=== PATIENT | male | born 1965 ===

== ENCOUNTER 2017-02-05 01:03 | Emergency (ER) | payer OTHER ==
[2017-02-05 02:17] LABS: % IMMATURE GRANULYOCYTES 0.5 % (0.0-1.1); ABSOLUTE IMMATURE GRANULOCYTES 0.04 10^3/uL (0.00-0.10); ADD DIFF? NO; ADD MORPH? NO; ADD SCAN? NO; ATYPICAL LYMPHOCYTE FLAG 0 (0-99); FRAGMENT RBC FLAG 0 (0-99); HEMATOCRIT 41.7 % (40.0-51.0); HEMOGLOBIN 13.8 g/dL (13.7-17.5); LEFT SHIFT FLG 0 (0-99); LIPEMIA HEMOLYSIS FLAG 80 (0-99); MEAN CELL HEMOGLOBIN 30.8 pg (27.9-34.1); MEAN CELL HEMOGLOBIN CONCENTR. 33.1 g/dL (32.4-36.7); MEAN CELL VOLUME 93.1 fL (81.5-99.8); MEAN PLATELET VOLUME 10.8 fL (8.7-11.7); PLATELET CLUMPS FLAG 0 (0-99); PLATELET COUNT 249 10^3/uL (150-400); RED BLOOD CELL COUNT 4.48 10^6/uL (4.40-6.38); RED CELL DISTRIBUTION WIDTH 14.4 % (11.5-15.2)
[2017-02-05 02:27] LABS: ALANINE AMINOTRANSFERASE 71 IU/L (21-72); ALKALINE PHOSPHATASE 82 IU/L (38-126); ANION GAP 14 mEq/L (8-16); ASPARTATE AMINOTRANSFERASE 69 IU/L (17-59); BILIRUBIN,TOTAL 0.7 mg/dL (0.1-1.4); CARBON DIOXIDE 22 mEq/l (22-31); CHLORIDE 109 mEq/L (97-110); CREATININE 0.9 mg/dL (0.7-1.3); ETHANOL SERUM 101 mg/dL (0-10); GLOMERULAR FILTRATION RATE > 60; GLUCOSE 92 mg/dL (70-100); POTASSIUM 3.9 mEq/L (3.5-5.2); SODIUM 145 mEq/L (134-144); TOTAL PROTEIN 7.2 g/dL (6.3-8.2)
--- NOTE | 2017-02-05 03:54 | EDPHY ---
H & P Stated Complaint: M1, SI, plan to hang self Source: Patient, Family - Personal History Current Tetanus/Diphtheria Vaccine: Yes Current Tetanus Diphtheria and Acellular Pertussis (TDAP): Yes - Medical/Surgical History Hx Asthma: No Hx Chronic Respiratory Disease: No Hx Diabetes: No Hx Cardiac Disease: No Hx Renal Disease: No Hx Cirrhosis: No Hx Alcoholism: No Hx HIV/AIDS: No Hx Splenectomy or Spleen Trauma: No Other PMH: depression, PTSD - Social History Smoking Status: Never smoked Time Seen by Provider: 02/05/17 01:33 HPI/ROS: HPI The patient presents with suicidal ideation with plan to hang himself. He is brought in by police after being placed on an M1 hold. He sent his a text message saying he was going to hang himself. She then discovered a cord in the basement which she suspected he would use for this. She did not feel comfortable leaving him at home so that she could go to work, thus she called 911. The patient has had similar suicidal ideation in the past. He was last hospitalized in August of 2016 for SI is at the OR. He is followed by an outpatient psychiatrist and a therapist. He has been drinking alcohol tonight.. REVIEW OF SYSTEMS Constitutional: No fever, no chills. Eyes: No discharge. ENT: No sore throat. Cardiovascular: No chest pain, no palpitations. Respiratory: No cough, no shortness of breath. Gastrointestinal: No abdominal pain, no vomiting. Genitourinary: No hematuria. Musculoskeletal: No back pain. Skin: No rashes. Neurological: No headache. PMHx: PTSD, depression, on disability Soc Hx: [place] war , alcohol use PHYSICAL General Appearance: Alert, no distress Eyes: Pupils equal and round no pallor or injection ENT, Mouth: Mucous membranes moist Respiratory: There are no retractions, lungs are clear to auscultation Cardiovascular: Regular rate and rhythm Gastrointestinal: Abdomen is soft and non-tender, no masses, bowel sounds normal Neurological: A&O, moves all extremities Skin: Warm and dry, no rashes Musculoskeletal: Neck is supple non tender Extremities: symmetrical, full range of motion Psychiatric: Patient is oriented X 3, there is no agitation (Riguzzi,Mary Grace) Constitutional: Initial Vital Signs Temperature (C) 36.5 C 02/05/17 01:07 Heart Rate 103 H 02/05/17 01:07 Respiratory Rate 16 02/05/17 01:07 Blood Pressure 110/82 H 02/05/17 01:07 O2 Sat (%) 88 L 02/05/17 01:07 O2 Delivery Mode Room Air Allergies/Adverse Reactions: oxycodone [From Percocet] Allergy (Verified 02/05/17 01:13) Hives Penicillins Allergy (Verified 02/05/17 01:13) Hives Home Medications: Medication Instructions Recorded Amitriptyline HCl [Elavil 50 mg 25 mg PO HS 02/05/17 (*)] Citalopram [CeleXA] 20 mg PO DAILY 02/05/17 Gabapentin [Neurontin 300 MG (*)] 900 mg PO TID 02/05/17 Hydrocodone/Acetaminophen [[place] 1 tab PO BID 02/05/17 5/325 (*)] Morphine Er 15mg 15 mg PO BID 02/05/17 busPIRone [Buspar (*)] 5 mg PO DAILY 02/05/17 Medical Decision Making ED Course/Re-evaluation: In the emergency room, labs were checked which did reveal due to urine toxicology positive for opiates, the patient is on these long-term for chronic back pain. Alcohol level was also elevated. The patient was seen by the mental health worker Adalgisa. He became very upset when he heard that he would likely require hospitalization. He feels he would not benefit from his last hospitalization in August. He felt quite uncomfortable being in a locked nieto and this made his PTSD much worse. He was given a dose of Ativan to help him sleep. The mental health team plans on re- evaluating him in the morning and [facility]. At 7:00 a.m. he will be signed out to the oncoming provider Dr. Patel. ( Mary Grace Mckeon) 12:30 p.m. Patient has been accepted by [facility]. We will complete transfer paperwork. (Jm Patel) Differential Diagnosis: This is a 51-year-old male with history of PTSD and depression, prior suicide ideation who presents from home on an M1 hold for suicidal ideation after sending a text message to his stating that he was going to hang himself. She found a cord in the basement which she thought he may use. He has been drinking alcohol. Differential diagnosis includes worsening depression with suicidal ideation, alcohol abuse, polysubstance abuse. (Mary Grace Mckeon) - Data Points Laboratory Results: Laboratory Results 02/05/17 01:54 02/05/17 01:54 02/05/17 02/05/17 02/05/17 02:20 01:54 01:54 WBC 8.50 10^3/uL 10^3/uL (3.80-9.50) RBC 4.48 10^6/uL 10^6/uL (4.40-6.38) Hgb 13.8 g/dL g/dL (13.7-17.5) Hct 41.7 % % (40.0-51.0) MCV 93.1 fL fL (81.5-99.8) MCH 30.8 pg pg (27.9-34.1) MCHC 33.1 g/dL g/dL (32.4-36.7) RDW 14.4 % % (11.5-15.2) Plt Count 249 10^3/uL 10^3/uL (150-400) MPV 10.8 fL fL (8.7-11.7) Neut % (Auto) 57.2 % % (39.3-74.2) Lymph % (Auto) 32.2 % % (15.0-45.0) [place] % (Auto) 7.3 % % (4.5-13.0) Eos % (Auto) 2.2 % % (0.6-7.6) Baso % (Auto) 0.6 % % (0.3-1.7) Nucleat RBC Rel Count 0.0 % % (0.0-0.2) Absolute Neuts (auto) 4.86 10^3/uL 10^3/uL (1.70-6.50) Absolute Lymphs (auto) 2.74 10^3/uL 10^3/uL (1.00-3.00) Absolute Monos (auto) 0.62 10^3/uL 10^3/uL (0.30-0.80) Absolute Eos (auto) 0.19 10^3/uL 10^3/uL (0.03-0.40) Absolute Basos (auto) 0.05 10^3/uL 10^3/uL (0.02-0.10) Absolute Nucleated RBC 0.00 10^3/uL 10^3/uL (0-0.01) Immature Gran % 0.5 % % (0.0-1.1) Immature Gran # 0.04 10^3/uL 10^3/uL (0.00-0.10) Sodium 145 mEq/L H mEq/L (134-144) Potassium 3.9 mEq/L mEq/L (3.5-5.2) Chloride 109 mEq/L mEq/L (97-110) Carbon Dioxide 22 mEq/l mEq/l (22-31) Anion Gap 14 mEq/L mEq/L (8-16) BUN 13 mg/dL mg/dL (7-23) Creatinine 0.9 mg/dL mg/dL (0.7-1.3) Estimated GFR > 60 Glucose 92 mg/dL mg/dL (70-100) Calcium 9.0 mg/dL mg/dL (8.5-10.4) Total Bilirubin 0.7 mg/dL mg/dL (0.1-1.4) AST 69 IU/L H IU/L (17-59) ALT 71 IU/L IU/L (21-72) Alkaline Phosphatase 82 IU/L IU/L (38-126) Total Protein 7.2 g/dL g/dL (6.3-8.2) Albumin 4.0 g/dL g/dL (3.5-5.0) Urine Opiates Screen NON-NEGATIVE H (NEGATIVE) Urine Barbiturates NEGATIVE (NEGATIVE) Ur Phencyclidine Scrn NEGATIVE (NEGATIVE) Ur Amphetamine Screen NEGATIVE (NEGATIVE) U Benzodiazepines Scrn NEGATIVE (NEGATIVE) Urine Cocaine Screen NEGATIVE (NEGATIVE) U Marijuana (THC) Screen NEGATIVE (NEGATIVE) Ethyl Alcohol 101 mg/dL H mg/dL (0-10) Medications Given: Discontinued Medications Lorazepam (Ativan) 2 mg PO EDNOW ONE Stop: 02/05/17 05:10 Last Admin: 02/05/17 05:10 Dose: 2 mg Lorazepam (Ativan) 1 mg PO EDNOW ONE Stop: 02/05/17 11:45 Last Admin: 02/05/17 11:44 Dose: 1 mg Departure - Departure Disposition: Other Psych, Not [place] Clinical Impression: Suicidal ideation Alcohol intoxication Qualifiers: Complication of substance-induced condition: uncomplicated Qualified Code(s): F10.120 - Alcohol abuse with intoxication, uncomplicated Condition: Fair Referrals: CHEN SEGOVIA [Other] - As per Instructions
[2017-02-05] MEDS ORDERED: LORazepam 1 MG TAB ONE ×2 (05:05→11:38)
[2017-02-05] MEDS ORDERED: LORazepam 1 MG TAB PO ONE ×3 (05:09→13:01)
[2017-02-05] MEDS ORDERED: HALOPERIDOL LACT 5 MG/ML INJ IM ONE (12:59)
[2017-02-05] MEDS ORDERED: LORazepam 2 MG/ML INJ IM ONE (12:59)
[2017-02-05] MEDS ORDERED: OLANZapine DISINTEGR 10 MG TAB PO ONE (13:00)
[2017-02-05] MEDS ORDERED: morphINE SR 15 MG TAB PO ONE (15:02)
[2017-02-05] MEDS ORDERED: GABAPENTIN 300 MG CAP PO ONE (15:03)
[2017-02-05] MEDS ORDERED: HYDROCODONE/APAP 5/325 TAB PO ONE (15:04)
[2017-02-05 15:42] VITALS: BP 128/79; PULSE 80; RESP 14; TEMP 98.4; O2SAT 94
== END 2017-02-05 15:40 ==
DX: R45.851 Suicidal ideations (principal); F10.120 Alcohol abuse with intoxication, uncomplicated
CPT/HCPCS: 80305; G0480